=== PATIENT | female | born 1995 ===

== ENCOUNTER 2021-01-04 17:20 | Inpatient (IN) | payer OTHER, MEDICAID, SELFPAY ==
[2021-01-04 17:24] VITALS: BP 121/82; PULSE 117; O2SAT 99
[2021-01-04 17:37] VITALS: BP 106/74; PULSE 88; RESP 19; TEMP 36.6; BMI 19.5
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
[2021-01-04 19:18] VITALS: BP 105/74; PULSE 7; RESP 16; TEMP 36.6; O2SAT 99
--- NOTE | 2021-01-04 20:22 | PC.NURSE ---
Handoff given to KAYLIN Perry, pt moved to [facility] at this time
--- NOTE | 2021-01-04 21:19 | PC.NURSE ---
DCF completed their interview with patient. patient is tearful but compliant with private branch exchange installer process.
[2021-01-04 21:40] LABS: Appearance Urine HAZY; Color Urine YELLOW; Glucose Urine UA NEG (NEG); Leukocyte Esterase Urine NEG (NEG); Nitrite Urine NEG (NEG); Urine Blood NEG (NEG); Urine Ketones 5 MG/DL (NEG); Urine Protein NEG (NEG-TRACE)
[2021-01-04 21:54] LABS: Mucus Urine TRACE /LPF; RBC Urine 0 /HPF (0); Squamous Epithelial Cell Urine TRACE /LPF; WBC Urine 0 /HPF (0-4)
[2021-01-04 21:55] LABS: COVID-19 Test Negative (Negative)
[2021-01-04 22:48] LABS: Amphetamine Screen Urine Not Detected (Not Detect); Barbiturates, Urine Not Detected (Not Detect); Benzodiazepines Screen Urine Not Detected (Not Detect); Cannabinoid Screen Urine POSITIVE (Not Detect); Cocaine Screen Urine Not Detected (Not Detect); Fentanyl, urine Not Detected (Not Detect); Opiate Screen Urine Not Detected (Not Detect); Phencyclidine Screen Urine Not Detected (Not Detect)
--- NOTE | 2021-01-05 00:09 | PC.NURSE ---
Patient provided urine sample for XIE, result notified to [facility], patient refused blood work, patient is currently in bed appears sleeping, will continue to monitor.
[2021-01-05 06:10] VITALS: BP 106/74; PULSE 76; RESP 16; TEMP 36.6; O2SAT 96
--- NOTE | 2021-01-05 06:20 | PC.NURSE ---
Patient slept through the night, no distress observed/reported, patient was out of room x 1 for bathroom use and back, patient is accepted to pending transfer, behavior appropriate, patient is not on any medication at this time per patient, VSS, will continue to monitor.
--- NOTE | 2021-01-05 07:09 | PC.NURSE ---
patient appears to reamin asleep at present respirations even and unlabored, patient appears in no distress
[2021-01-05 08:52] LABS: MANUAL DIFF FLAG NO
[2021-01-05 08:54] LABS: Basophils Percent Auto 0.6 % (0-2); Eosinophils Absolute Auto 0.3 X10*3/uL (0.0-0.4); Eosinophils Percent Auto 3.8 % (0-4); Hematocrit 43.4 % (37-47); Hemoglobin 14.5 g/dl (12.0-16.0); Imm Gran Abs Auto 0.01 X10*3/uL (0.00-0.03); Imm Gran Pct Auto 0.1 % (0.0-0.4); Lymphocytes Percent Auto 28.4 % (20-40); Mean Corpuscular HGB Conc 33.4 g/dl (31.0-35.0); Mean Corpuscular Hemoglobin 31.9 pg (27.0-33.0); Mean Corpuscular Volume 95.6 fL (80-98); Monocytes Absolute Auto 0.5 X10*3/uL (0.1-1.2); Monocytes Percent Auto 7.1 % (2-11); Neutrophils Absolute Auto 4.2 X10*3/uL (2.0-8.3); Platelet Count 246 X10*3/uL (160-400); Red Blood Count 4.54 X10*6/uL (4.20-5.50)
[2021-01-05 09:12] LABS: Alanine Aminotransferase 8 U/L (0-31); Albumin Level 4.6 g/dL (3.5-5.0); Alkaline Phosphatase 61 U/L (39-117); Anion Gap 13 (12-20); Aspartate Amino Transferase 14 U/L (5-31); Bilirubin Direct 0.2 mg/dL (0.0-0.5); Bilirubin Total 0.5 mg/dL (0.0-1.0); Blood Urea Nitrogen 8 mg/dL (9-16); Calcium 10.1 mg/dL (8.4-10.2); Carbon Dioxide 26 mmol/L (22-29); Chloride 109 mmol/L (96-108); Creatinine Clr Calc Pharmacy 82.8; Estimated Glomerular Filt Rate > 60; Glucose Random 95 mg/dL (60-115); Potassium 4.5 mmol/L (3.3-5.1); Sodium 143 mmol/L (135-145); Total Protein 7.5 g/dL (6.5-8.0)
[2021-01-05 18:00] VITALS: BP 110/64; PULSE 76; RESP 16; TEMP 37; O2SAT 97
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
[2021-01-06 10:10] VITALS: BP 117/88; PULSE 94; RESP 18; TEMP 36.8; O2SAT 99
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
[2021-01-06 21:01] VITALS: BP 113/82; PULSE 89; TEMP 36.5; O2SAT 98
[2021-01-07 08:42] VITALS: BP 118/87; PULSE 84; RESP 18; TEMP 36.5; O2SAT 98
--- NOTE | 2021-01-07 08:48 | HO.PSYCHPN ---
Subjective Subjective Date of Service: 01/07/21 Reason For Visit: Mood Disorder NOS Subjective Notes: 3 Day Interim History: Patient was seen in rounds today. She has been doing better and states that being away from the home environment has been helpful. Haldol discussed. Current records and medications were reviewed. She denies any side effects. She has been eating and sleeping adequately. She does have a 3 day notice and and is very eager to be discharged hopefully by Saturday which she will discuss with Dr. Burrell. No changes were made today. Review of Systems Review of Systems Yes all other systems are reviewed and are negative Mental Status Exam Mental Status Exam Narrative: In today's visit she is alert, oriented and pleasant. Normal speech. Good eye contact. Affect is appropriate and varied. No signs of psychosis. No SI upon inquiry. Cognitively intact. Judgment is intact Diagnostics Vital Signs (24Hr): Vital Signs - 24 hr 01/06/21 10:10 01/06/21 21:01 01/07/21 08:42 Temperature 98.2 F 97.7 F 97.7 F Pulse Rate 94 89 84 Respiratory Rate 18 18 Blood Pressure 117/88 113/82 118/87 Pulse Oximetry 99 98 98 Body Mass Index 19.5 Labs Results: 01/05/21 08:48 01/05/21 08:48 Labs: Laboratory Results - last 48 hr 01/05/21 01/05/21 08:48 08:48 WBC 7.0 RBC 4.54 Hgb 14.5 Hct 43.4 MCV 95.6 MCH 31.9 MCHC 33.4 RDW 13.0 Plt Count 246 MPV 9.0 L Immature Gran % (Auto) 0.1 Neut % (Auto) 60.0 Lymph % (Auto) 28.4 [place] % (Auto) 7.1 Eos % (Auto) 3.8 Baso % (Auto) 0.6 Lymph # (Auto) 2.0 [place] # (Auto) 0.5 Eos # (Auto) 0.3 Baso # (Auto) 0.0 Abs Immat Gran (auto) 0.01 Absolute Neuts (auto) 4.2 Absolute Nucleated RBC 0.000 Nucleated RBC % (auto) 0.0 Sodium 143 Potassium 4.5 Chloride 109 H Carbon Dioxide 26 Anion Gap 13 BUN 8 L Creatinine 0.75 Estim Creat Clear Calc 82.8 Estimated GFR > 60 Random Glucose 95 Calcium 10.1 Total Bilirubin 0.5 Direct Bilirubin 0.2 AST 14 ALT 8 Alkaline Phosphatase 61 Total Protein 7.5 Albumin 4.6 Medications Medications Current Medications Acetaminophen (Acetaminophen 325 Mg Tablet) 650 mg PO Q6H PRN PRN Reason: Headache/Pain Mild Scale (1-3) Al Hydroxide/Mg Hydroxide (Magnesium Hydrox/Alum Hydrox 30 Ml Oral.Susp) 30 ml PO Q6H PRN PRN Reason: Heartburn/Nausea Diphenhydramine HCl (Diphenhydramine Hcl 25 Mg Tablet) 50 mg PO BEDTIME [facility] Last Admin: 01/06/21 22:30 Dose: Not Given Documented by: Haloperidol (Haloperidol 1 Mg Tablet) 2 mg PO BEDTIME [facility]IN Last Admin: 01/06/21 22:30 Dose: Not Given Documented by: Hydroxyzine HCl (Hydroxyzine Hcl 25 Mg Tablet) 25 mg PO BEDTIME PRN PRN Reason: Anxiety Lorazepam (Lorazepam 1 Mg Tablet) 1 mg PO Q4H PRN PRN Reason: agitation Magnesium Hydroxide (Milk Of Magnesia 30 Ml Oral.Susp) 30 ml PO DAILY PRN PRN Reason: Constipation Nicotine Polacrilex (Nicotine Polacrilex 2 Mg Gum) 2 mg BUCCAL Q2H PRN PRN Reason: Nicotine Cravings Trazodone HCl (Trazodone Hcl 50 Mg Tablet) 50 mg PO BEDTIME PRN PRN Reason: Insomnia Allergies Allergies Allergy/AdvReac Type Severity Reaction Status Date / Time amoxicillin [AMOXICILLIN] Allergy Unknown UNKNOWN Unverified 12/31/19 17:19 Penicillins [PENICILLINS] Allergy Unknown UNKNOWN Unverified 12/31/19 17:19 Assessment & Plan Assessment & Plan (1) Mood disorder: Status: Acute Code(s): F39 - Unspecified mood [affective] disorder Assessment and Plan: Continue current regimen. She will discuss her [address] Burrell on Saturday. Greater than 50% of the session was spent on counseling and/or coordination of care Reason for contiued inpatient stay Substantial Risk for: other
[2021-01-07] MEDS: LORazepam 1 MG TABLET PO (15:27)
[2021-01-07 20:05] VITALS: BP 123/88; PULSE 72; RESP 18; TEMP 36.2; O2SAT 100
[2021-01-07] MEDS: diphenhydrAMINE HCL 25 MG TABLET 50 MG PO (23:09)
[2021-01-07] MEDS: HaloperidoL 1 MG TABLET 2 MG PO (23:10)
--- NOTE | 2021-01-08 08:39 | HO.PSYCHPN ---
Subjective Subjective Date of Service: 01/08/21 Reason For Visit: Mood Disorder NOS Subjective Notes: 3 Day Interim History: Patient was seen in rounds today. She continues to be pleasant, somewhat restless and hyperverbal. Eating and sleeping adequately she has been med compliant. No complaints or side effects. She is preoccupied with her child. No SI. No changes were made today Medication Compliance: Yes Side effects from medications: No Attending Groups: Yes Review of Systems Review of Systems Yes all other systems are reviewed and are negative Mental Status Exam Mental Status Exam Narrative: In today's visit she is alert, oriented and pleasant. Normal speech. Good eye contact. Affect is appropriate and varied. No signs of psychosis. No SI upon inquiry. Cognitively intact. Judgment is intact Diagnostics Vital Signs (24Hr): Vital Signs - 24 hr 01/07/21 08:42 01/07/21 20:05 Temperature 97.7 F 97.2 F Pulse Rate 84 72 Respiratory Rate 18 18 Blood Pressure 118/87 123/88 Pulse Oximetry 98 100 Body Mass Index 19.5 Labs Results: 01/05/21 08:48 01/05/21 08:48 Medications Medications Current Medications Acetaminophen (Acetaminophen 325 Mg Tablet) 650 mg PO Q6H PRN PRN Reason: Headache/Pain Mild Scale (1-3) Al Hydroxide/Mg Hydroxide (Magnesium Hydrox/Alum Hydrox 30 Ml Oral.Susp) 30 ml PO Q6H PRN PRN Reason: Heartburn/Nausea Diphenhydramine HCl (Diphenhydramine Hcl 25 Mg Tablet) 50 mg PO BEDTIME DUSTIN Last Admin: 01/07/21 23:09 Dose: 50 mg Documented by: Haloperidol (Haloperidol 1 Mg Tablet) 2 mg PO BEDTIME DUSTIN Last Admin: 01/07/21 23:10 Dose: 2 mg Documented by: Hydroxyzine HCl (Hydroxyzine Hcl 25 Mg Tablet) 25 mg PO BEDTIME PRN PRN Reason: Anxiety Lorazepam (Lorazepam 1 Mg Tablet) 1 mg PO Q4H PRN PRN Reason: agitation Last Admin: 01/07/21 15:27 Dose: 1 mg Documented by: Magnesium Hydroxide (Milk Of Magnesia 30 Ml Oral.Susp) 30 ml PO DAILY PRN PRN Reason: Constipation Nicotine Polacrilex (Nicotine Polacrilex 2 Mg Gum) 2 mg BUCCAL Q2H PRN PRN Reason: Nicotine Cravings Trazodone HCl (Trazodone Hcl 50 Mg Tablet) 50 mg PO BEDTIME PRN PRN Reason: Insomnia Allergies Allergies Allergy/AdvReac Type Severity Reaction Status Date / Time amoxicillin [AMOXICILLIN] Allergy Unknown UNKNOWN Unverified 12/31/19 17:19 Penicillins [PENICILLINS] Allergy Unknown UNKNOWN Unverified 12/31/19 17:19 Assessment & Plan Assessment & Plan (1) Mood disorder: Status: Acute Code(s): F39 - Unspecified mood [affective] disorder Assessment and Plan: Continue current regimen. She will discuss her [address] Burrell on Saturday. Reason for contiued inpatient stay Substantial Risk for: other
[2021-01-08 11:24] VITALS: BP 107/67; PULSE 104; RESP 16; TEMP 36.6; O2SAT 100
[2021-01-08] MEDS: hydrOXYzine HCL 25 MG TABLET PO (14:29)
[2021-01-08 18:00] VITALS: BP 121/68; PULSE 79; RESP 17; TEMP 36.6; O2SAT 99
--- NOTE | 2021-01-08 21:10 | PC.NURSE ---
Patient requesting a test. She reports left side cramping. She cannot remember her last period. She reports history of ectopic . No test has been done since 11/30/2019. Pt. has a 7 month old baby. Pt. is refusing medications at this time because she doesn't know what effects the medications will have if she is . Dr. Mortensen notified. test ordered. Urine collected and sent to the lab.
[2021-01-08 21:24] LABS: UPreg QC Valid YES; Urine Pregnancy NEGATIVE (NEGATIVE)
[2021-01-08] MEDS: HaloperidoL 1 MG TABLET 2 MG PO (21:44)
[2021-01-08] MEDS: diphenhydrAMINE HCL 25 MG TABLET 50 MG PO (21:44)
[2021-01-09 09:21] VITALS: BP 103/76; PULSE 93; RESP 16; TEMP 36.6; O2SAT 100
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
== END 2021-01-09 15:10 | disposition home or self-care (01) | DRG 753 ==
LOC: HO.ED 23:56 → HO.PADLT16 01-05 10:46
PROVIDERS: Nurse Practitioner Family; Psychiatry & Neurology Psychiatry; Admitting Provider Psychiatry & Neurology Psychiatry; Emergency Provider Student in an Organized Health Care Education/Training Program; PCP Internal Medicine; Visit Provider Social Worker
DX: F39 Unspecified mood [affective] disorder (principal); Z20.822 Contact with and (suspected) exposure to COVID-19; Z88.0 Allergy status to penicillin
CPT/HCPCS: 36415; 80048; 80076; 80307; 81001; 81025; 85025; 87635; 99285; Q0163

== ENCOUNTER 2021-11-29 04:11 | Emergency (ER) | payer MEDICAID, SELFPAY ==
[2021-11-29 04:17] VITALS: BP 121/88; PULSE 112; RESP 17; TEMP 36.8; O2SAT 100; BMI 16.6
--- NOTE | 2021-11-29 04:37 | PC.NURSE ---
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
[2021-11-29 04:40] LABS: Appearance Urine Clear; Color Urine Yellow; Glucose Urine UA Negative (Negative); Leukocyte Esterase Urine Negative (Negative); Nitrite Urine Negative (Negative); Specific Gravity - Urine >= 1.030 (1.005-1.025); Urine Blood Large (3+) (Negative); Urine Ketones Trace mg/dL (Negative); Urine Protein Negative (Neg-Trace)
[2021-11-29 04:46] LABS: RBC Urine 0-2 /HPF (0-2); Squamous Epithelial Cell Urine 0-2 /HPF (0-2); WBC Urine 0-5 /HPF (0-5)
[2021-11-29 04:47] LABS: Bacteria Urine Trace (None Seen)
[2021-11-29 04:55] LABS: Amphetamine Screen Urine Not Detected (Not Detect); Barbiturates, Urine Not Detected (Not Detect); Benzodiazepines Screen Urine Not Detected (Not Detect); Cannabinoid Screen Urine POSITIVE (Not Detect); Cocaine Screen Urine Not Detected (Not Detect); Fentanyl, urine Not Detected (Not Detect); Opiate Screen Urine Not Detected (Not Detect); Phencyclidine Screen Urine Not Detected (Not Detect)
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
[2021-11-29 04:57] LABS: COVID-19 Test Negative (Negative)
[2021-11-29 04:58] LABS: Hyaline Casts Urine 0-2 /LPF (0-2)
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
[2021-11-29 05:02] LABS: UPreg QC Valid YES; Urine Pregnancy NEGATIVE (NEGATIVE)
--- NOTE | 2021-11-29 06:59 | PC.NURSE ---
patient appears to remain asleep patient appears in no distress, respirations are even and unlabored
--- NOTE | 2021-11-29 12:45 | MHC.CARE ---
CARE Team met with patient following [facility] evaluation, she did present as pressured, hyperverbal and tangential with a bright affect, used my name in nearly every statement. She reported having no day structure and living with her boyfriend's parents is challenging, does not have any mental health providers, gave her information about [facility] and clinics that have walk-in intakes for counseling. In addition, patient stated that some people are concerned about her drinking and acknowledged that how the alcohol hits her is variable. Was interested speaking with a [employer] but was discharged quickly and left her phone number ([phone]) said she is open to a call from someone to discuss harm reduction, also provided [facility] information.
== END 2021-11-29 12:41 | disposition home or self-care (01) ==
PROVIDERS: Emergency Provider Emergency Medicine; PCP Internal Medicine
DX: F39 Unspecified mood [affective] disorder (principal); Z20.822 Contact with and (suspected) exposure to COVID-19
CPT/HCPCS: 80307; 81001; 81025; 87635; 99283; 99284

== ENCOUNTER → 2022-09-11 11:23 | Outpatient (BNVA) | payer SELFPAY | PROVIDERS: PCP Internal Medicine | DX: Z11.1 Encounter for screening for respiratory tuberculosis (principal) ==

== ENCOUNTER 2023-05-21 15:41 | Emergency (ER) | payer MEDICAID, SELFPAY ==
[2023-05-21 15:45] VITALS: BP 110/81; PULSE 120; RESP 18; TEMP 36.9; O2SAT 100; BMI 18.7
--- NOTE | 2023-05-21 15:47 | ED.URI ---
HPI - URI/Sore Throat General Chief Complaint: Upper Respiratory Symptoms Stated Complaint: sob/body aches/flu like symptoms Time Seen by Provider: 05/21/23 17:31 Source: patient Mode of arrival: ambulatory History of Present Illness HPI Narrative: 27-year-old female presents with cough, congestion, shortness of breath on exertion and complaining of chest pain associated with coughing. States that the symptoms have been present since Saturday in that she COVID-19 tested on Saturday/Saturday but states that the testing was negative at that time. Related Data Home Medications Medication Instructions Recorded Confirmed No Known Home Meds 11/29/21 11/29/21 Allergies Allergy/AdvReac Type Severity Reaction Status Date / Time amoxicillin [AMOXICILLIN] Allergy Unknown UNKNOWN Unverified 12/31/19 17:19 Penicillins [PENICILLINS] Allergy Unknown UNKNOWN Unverified 12/31/19 17:19 Review of Systems Review of Systems: Positives and negatives as stated in HPI PMFSH Past Medical History Source: nursing notes reviewed Medical History Depression Social History Social History Household Members: Family Household Members Other:: Father, His , Her 2 kids and Pt's daughter Housing: House Do you presently have visiting nurse or other home services: No Patient Tobacco Use Status: Never used Tobacco Advance Directives: No Advance Directives Information Provided: No service: No Sexual orientation: Straight/Heterosexual Physical Exam Vital Signs: Vital Signs: Last Vital Signs Temp 99.3 F 05/21/23 17:34 Pulse 105 H 05/21/23 17:34 Resp 19 05/21/23 17:34 BP 112/68 05/21/23 17:34 Pulse Ox 100 05/21/23 17:34 O2 Del Method Room Air 05/21/23 17:34 BMI result Body Mass Index 18.7 VITAL SIGNS: Reviewed. GENERAL: Well developed, well nourished, in no acute distress. HEAD: Normocephalic/atraumatic EYES: PERRLA, EOMI EARS: Ext canals without abnormality, TMs non-bulging and non-erythematous NOSE: Nares patent bilateral OROPHARYNX: no oral lesions noted, posterior pharynx clear and non-erythematous without noted tonsillar enlargement/erythema/exudates NECK: Supple, no adenopathy LUNGS: Normal breath sounds. No adventitious sounds or accessory muscle use. SpO2<100> CARDIOVASCULAR: Regular rate and rhythm without noted murmurs ABDOMEN: Soft, non-tender, non-distended with bowel sounds. MUSCULOSKELETAL: No tenderness, deformities, or effusions noted on gross inspection. EXTREMITIES: No cyanosis, clubbing or edema. SKIN: Inspection of the skin reveals no rashes NEUROLOGIC: Alert and oriented x 4. Strength and sensation to light touch were grossly intact x 4. Course Course Course Narrative: This is a rapid medical exam. Defer additional HPI ROS, PE to primary provider. 27-year-old female here with URI symptoms. Will send viral testing, chest x-ray. Patient noted to be tachycardic at triage. Asymptomatic. Will check EKG. Reevaluation(s) Reevaluation #1: Patient is COVID positive. Called triage to inform and dc. Now complaining of intermittent right arm numbness which she wants to be seen for. Labs ordered. Medical Decision Making Medical Decision Making [facility] Narrative: 27-year-old female with history and clinical presentation, DDX: Viral illness, COVID/influenza no clinical suspicion for bacterial pneumonia at this time. I reviewed all investigations and hematologic indices are negative for leukocytosis/anemia/thrombocytopenia. Chemistry indices do not demonstrate any ALAINA/electrolyte or liver enzyme derangements and high sensitivity troponin is undetectable without acute changes on EKG. Viral testing positive for COVID and patient is as symptoms since Saturday and will provide 1 additional day of isolation. All results and findings discussed with patient at bedside and she is otherwise discharged home in strongly encouraged to follow-up with primary care doctor. Differential Diagnosis Differential Diagnoses: The differential diagnosis associated with the presentation includes Please see the discussion above Admission/Observation Consideration of admission/observation: Escalation of care including admission/observation considered Please see the discussion above Lab Data [facility] Lab Attestation statement: I reviewed the patient's lab results. Please see the discussion above 05/21/23 17:48 05/21/23 17:48 Labs: Lab Results 05/21/23 05/21/23 Range/Units 16:01 17:48 WBC 5.4 (4.8-10.8) X10*3/uL RBC 4.05 L (4.20-5.50) X10*6/uL Hgb 12.9 (12.0-16.0) g/dl Hct 37.8 (37.0-47.0) % MCV 93.3 (80.0-98.0) fL MCH 31.9 (27.0-33.0) pg MCHC 34.1 (31.0-35.0) g/dl RDW 11.6 (11.0-16.0) % Plt Count 219 (160-400) X10*3/uL MPV 8.7 L (9.4-12.3) fL Immature Gran % (Auto) 0.4 (0.0-0.4) % Neut % (Auto) 78.9 H (45-73) % Lymph % (Auto) 9.4 L (20-40) % [place] % (Auto) 10.5 (2-11) % Eos % (Auto) 0.4 (0-4) % Baso % (Auto) 0.4 (0-2) % Lymph # (Auto) 0.5 L (1.2-4.9) X10*3/uL [place] # (Auto) 0.6 (0.1-1.2) X10*3/uL Eos # (Auto) 0.0 (0.0-0.4) X10*3/uL Baso # (Auto) 0.0 (0.0-0.2) X10*3/uL Abs Immat Gran (auto) 0.02 (0.00-0.03) X10*3/uL Absolute Neuts (auto) 4.3 (2.0-8.3) x10*3/uL Absolute Nucleated RBC 0.000 (0.0-0.012) X10*3/uL Nucleated RBC % (auto) 0.0 (0.0-0.2) /100WBC Sodium 136 (135-145) mmol/L Potassium 3.9 (3.3-5.1) mmol/L Chloride 102 (96-108) mmol/L Carbon Dioxide 26 (22-29) mmol/L Anion Gap 12 (12-20) BUN 7 L (9-16) mg/dL Creatinine 0.66 (0.5-1.4) mg/dL Estim Creat Clear Calc 94.8 Estimated GFR > 60 Random Glucose 80 (60-115) mg/dL Calcium 9.4 D (8.4-10.2) mg/dL Magnesium 1.9 (1.6-2.6) mg/dL Total Bilirubin 0.2 (0.0-1.0) mg/dL Direct Bilirubin < 0.2 (0.0-0.5) mg/dL AST 15 (5-31) U/L ALT 9 (0-31) U/L Alkaline Phosphatase 61 (39-117) U/L Troponin I High Sens < 2.7 (<3.5-17.0) ng/L Total Protein 7.5 (6.5-8.0) g/dL Albumin 4.3 (3.5-5.0) g/dL COVID-19 ([facility]) Positive A (Negative) COVID-19 Clin Com See Note Influenza Type A ([facility]) Negative (Negative) Influenza Type B ([facility]) Negative (Negative) Influenza A & B Note See Note Independent Interpretation I performed an independent interpretation of an: EKG Interpretation: Sinus tachycardia, HR-107, no STEMI, OH/QRS/QTC is within normal limits. External Record Review External record reviewed: Outpatient record, Prior outpatient labs and Prior outpatient radiology Critical Care Time Critical Care Time Critical Care Time: Yes Total Critical Care Time: 30 Attestation: I personally attest to this time spent taking care of the patient. Discharge Plan Discharge Clinical Impression: Viral syndrome, Lab test positive for detection of COVID-19 virus Patient Disposition: Home, Self-Care Instructions: Viral Syndrome (ED), COVID-19 (Coronavirus Disease 2019) (ED) Additional Instructions: 1. Recommend [id number] Tylenol/ibuprofen as needed for body aches, headaches, temperatures greater than 100.4. Drink plenty of fluids and get rest. 2. You are 5 day isolation. Ends on Saturday of this week, you will then need to follow CDC guidelines and your employer years recommendations for return to work. 3. Please follow-up with your primary care doctor in the next 1-2 days. Return to the ER for any worsening symptoms. Prescriptions: No Action No Known Home Meds Referrals: Ignacio Pagan MD [Primary Care Provider] - Stand Alone Forms: Work/School Release Interventions: ED Discharge Assessment Last Done: 05/21/23 20:11 Discharge Date/Time: 05/21/23 20:12
--- NOTE | 2023-05-21 15:49 | ECG_ITS ---
Test Reason : DYSPNEA Blood Pressure : / mmHG Vent. Rate : 107 BPM Atrial Rate : 107 BPM P-R Int : 148 ms QRS Dur : 070 ms QT Int : 336 ms P-R-T Axes : 076 038 041 degrees QTc Int : 448 ms Sinus tachycardia Nonspecific ST and T wave abnormality Borderline ECG No previous ECGs available Referred By: Hannah Cervantes Electronically Signed By:JOSE CHAUDHARY
[2023-05-21 16:25] LABS: COVID-19 Test Positive (Negative); IDNOW Serial# 152EDE1D
[2023-05-21 16:32] LABS: IDNOW Serial# 08D9AD1C
[2023-05-21 16:33] LABS: Influenza A Negative (Negative); Influenza B2 Negative (Negative)
--- NOTE | 2023-05-21 17:33 | PC.NURSE ---
Patient now complaining of right arm numbness that goes up into her head and causes a lot of head pressure. Triage provider aware and will be ordering more test for the patient.
[2023-05-21 17:34] VITALS: BP 112/68; PULSE 105; RESP 19; TEMP 37.4; O2SAT 100
[2023-05-21 17:57] LABS: MANUAL DIFF FLAG NO
[2023-05-21 18:09] LABS: Basophils Percent Auto 0.4 % (0-2); Eosinophils Percent Auto 0.4 % (0-4); Hematocrit 37.8 % (37.0-47.0); Hemoglobin 12.9 g/dl (12.0-16.0); Imm Gran Abs Auto 0.02 X10*3/uL (0.00-0.03); Imm Gran Pct Auto 0.4 % (0.0-0.4); Lymphocytes Absolute Auto 0.5 X10*3/uL (1.2-4.9); Lymphocytes Percent Auto 9.4 % (20-40); Mean Corpuscular HGB Conc 34.1 g/dl (31.0-35.0); Mean Corpuscular Hemoglobin 31.9 pg (27.0-33.0); Mean Corpuscular Volume 93.3 fL (80.0-98.0); Mean Platelet Volume 8.7 fL (9.4-12.3); Monocytes Absolute Auto 0.6 X10*3/uL (0.1-1.2); Monocytes Percent Auto 10.5 % (2-11); Neutrophils Absolute Auto 4.3 x10*3/uL (2.0-8.3); Neutrophils Percent Auto 78.9 % (45-73); Platelet Count 219 X10*3/uL (160-400); Red Blood Count 4.05 X10*6/uL (4.20-5.50); Red Cell Distribution Width 11.6 % (11.0-16.0); White Blood Count 5.4 X10*3/uL (4.8-10.8)
[2023-05-21 18:19] LABS: Alanine Aminotransferase 9 U/L (0-31); Albumin Level 4.3 g/dL (3.5-5.0); Alkaline Phosphatase 61 U/L (39-117); Anion Gap 12 (12-20); Aspartate Amino Transferase 15 U/L (5-31); Bilirubin Direct < 0.2 mg/dL (0.0-0.5); Bilirubin Total 0.2 mg/dL (0.0-1.0); Blood Urea Nitrogen 7 mg/dL (9-16); Calcium 9.4 mg/dL (8.4-10.2); Carbon Dioxide 26 mmol/L (22-29); Chloride 102 mmol/L (96-108); Creatinine Clr Calc Pharmacy 94.8; Estimated Glomerular Filt Rate > 60; Glucose Random 80 mg/dL (60-115); Magnesium 1.9 mg/dL (1.6-2.6); Potassium 3.9 mmol/L (3.3-5.1); Sodium 136 mmol/L (135-145); Total Protein 7.5 g/dL (6.5-8.0)
[2023-05-21 18:26] LABS: Troponin-I High Sensitivity < 2.7 ng/L (<3.5-17.0)
== END 2023-05-21 20:12 | disposition home or self-care (01) ==
PROVIDERS: Nurse Practitioner Family; Emergency Provider Student in an Organized Health Care Education/Training Program; PCP Internal Medicine
DX: U07.1 COVID-19 (principal); B34.9 Viral infection, unspecified; R05.9 Cough, unspecified; Z11.52 Encounter for screening for COVID-19
CPT/HCPCS: 36415; 80048; 80076; 83735; 84484; 85025; 87502; 87635; 93005; 99283; 99284

== ENCOUNTER → 2023-05-21 15:49 | Outpatient (BNV) | payer MEDICAID, SELFPAY | PROVIDERS: Emergency Provider Student in an Organized Health Care Education/Training Program; PCP Internal Medicine; Visit Provider Internal Medicine | DX: R06.00 Dyspnea, unspecified (principal) | CPT/HCPCS: 93010 ==